=== PATIENT | female | born 1960 | race Two or more races ===

== ENCOUNTER 2024-11-06 16:52 | Emergency (ER) | payer SELFPAY ==
--- NOTE | ~2024-11-06 | XR_ITS ---
HISTORY: injury COMPARISON: None TECHNIQUE: 3 views of the left ankle were performed FINDINGS: Cortical irregularity is identified within the distal fibula, representing either a nutrient foramen versus acute incomplete fracture for which clinical correlation regarding point tenderness is needed. Moderate lateral soft tissue swelling. The ankle mortise is preserved. Bone mineralization is age-appropriate. Ossification of the Achilles tendon is also noted. IMPRESSION: Cortical irregularity is identified within the distal fibula, representing either a nutr ient foramen versus acute incomplete fracture for which clinical correlation regarding point tenderne ss is needed. Reviewed, dictated and finalized at location A. IMPRESSION: Cortical irregularity is identified within the distal fibula, repr esenting either a nutrient foramen versus acute incomplete fracture for which c linical correlation regarding point tenderness is needed.
[2024-11-06 16:52] VITALS: BP 160/80; PULSE 83; RESP 14; TEMP 36.2; O2SAT 99
--- NOTE | 2024-11-06 17:05 | ED.LOWEXIN ---
HPI - Extremity Injury (Lower) General Chief Complaint: Extremity Injury, Lower Stated Complaint: left ankle injury Time Seen by Provider: 11/06/24 17:05 Source: patient Mode of arrival: ambulatory Limitations: no limitations History of Present Illness HPI Narrative: Patient is a 64-year-old female with a left ankle injury after stepping in a hole in the yd. This happened today. She is having pain to the lateral left ankle. No other injuries to include head and neck. MD complaint: ankle injury ( Left) Onset (ago): hour(s) ( 2) Type of Injury: inversion Place: street/outdoors Severity: mild Severity scale (1-10): 3 Relieving factors: cold therapy and immobilization Exacerbating factors: weight bearing, movement and palpation Context: fall ( stepped in a hole) Associated symptoms: swelling and able to partially bear weight Other symptoms: none Treatments prior to arrival: cold therapy Related Data Home Medications ?Medication ?Instructions ?Recorded ?Confirmed ?Last Taken ?Type atorvastatin 40 mg tablet (Lipitor) 40 mg PO HS 11/06/24 Unknown History levothyroxine 25 mcg capsule 25 mcg PO DAILY 11/06/24 Unknown History metformin 500 mg tablet 500 mg PO BID 11/06/24 Unknown History metoprolol succinate 50 mg 50 mg PO DAILY 11/06/24 Unknown History tablet,extended release 24 hr Allergies Allergy/AdvReac Type Severity Reaction Status Date / Time No Known Allergies Allergy Verified 11/06/24 17:16 Review of Systems Review of Systems: All systems reviewed & are unremarkable except as noted in HPI and below Constitutional: Constitutional: Reports no additional constitutional complaints Eyes: Eyes: Reports no additional eye complaints ENT: Reports system reviewed and no additional complaints, except as documented Cardiovascular: Cardiovascular: Reports no additional cardiovascular complaints Respiratory: Respiratory: Reports no additional respiratory complaints Gastrointestinal: Gastrointestinal: Reports no additional gastrointestinal complaints Genitourinary: Genitourinary: Reports no additional female genitourinary complaints Musculoskeletal: Musculoskeletal: Reports no additional musculoskeletal complaints Integumentary/Breasts: Skin/Breast: Reports system reviewed and no additional complaints, except as docu Neurologic: Reports system reviewed and no additional complaints, except as documented Psychiatric: Psychiatric: Reports no additional psychiatric complaints Endocrine: Endocrine: Reports no additional endocrine complaints Hematologic/Lymphatic: Hematologic/Lymphatic: Reports no additional hematologic/lymphatic complaints Allergic/Immunologic: Allergic/Immunologic: Reports no additional allergic/immunologic complaints Exam Const: General: healthy appearing Nutritional Appearance: well nourished Orientation/consciousness: patient oriented x3 HENMT: Head: normal to inspection Ears: external ears normal Face/Nose/Sinus: Normal external nose present Eyes: Conjunctivae: conjunctivae normal Pupils: Equal, round and reactive pupils present EOM: EOMs intact bilaterally Neck: Neck: normal visual inspection Chest: Chest palpation & inspection: normal inspection of the chest Resp: Effort & Inspection: normal respiratory effort and not labored Auscultation: clear to auscultation bilaterally and no crackles Cardio: Rate: regular rate Rhythm: regular rhythm Heart sounds: no murmurs GI: Inspection: non-distended GI Palp: Yes Soft to palpation and No Tenderness to palpation present (GI) Auscultation: normal bowel sounds : General: Yes bladder normal to palpation Back/Spine/Pelvis: Back: no CVA tenderness Skin: General skin exam: normal color Rashes: no rashes Wounds: no wounds Neuro: General: patient oriented x3, moves all extremities and no meningeal signs Extrem: General: abnormal to inspection Other: left ankle lateral aspect of the malleolus is swollen and tender to the palpation without significant ecchymosis Psych: Mental Status: mental status grossly normal Affect: normal affect Attitude: cooperative Course Vital Signs Vital signs: Vital Signs Temperature 36.2 C L 11/06/24 16:52 Pulse Rate 83 11/06/24 16:52 Respiratory Rate 14 11/06/24 16:52 Blood Pressure 160/80 H 11/06/24 16:52 Pulse Oximetry 99 11/06/24 16:52 Oxygen Delivery Room Air 11/06/24 16:52 Temperature 36.2 C L 11/06/24 16:52 Pulse Rate 83 11/06/24 16:52 Respiratory Rate 14 11/06/24 16:52 Blood Pressure 160/80 H 11/06/24 16:52 Pulse Oximetry 99 11/06/24 16:52 Oxygen Delivery Room Air 11/06/24 16:52 MDM - Extremity Injury (Lower) MDM Narrative Medical decision making narrative: patient is a 64-year-old female with a left ankle injury or prior to arrival. We will get an x-ray. Pain control. Imaging Data Attestation: I personally reviewed and interpreted this imaging study as follows: Radiologist's impression: left ankle x-ray shows IMPRESSION: Cortical irregularity is identified within the distal fibula, representing either a nutrient foramen versus acute incomplete fracture for which clinical correlation regarding point tenderness is needed. Discharge Plan Discharge Clinical Impression: Fracture of left fibula Qualifiers: Encounter type: initial encounter Fibula location: distal Fracture type: closed Fracture morphology: unspecified fracture morphology Qualified Code(s): S82.832A - Other fracture of upper and lower end of left fibula, initial encounter for closed fracture Patient Disposition: Home Condition: Stable Instructions: Ankle Fracture (DC) Additional Instructions: please follow-up with an orthopedic surgeon in the next week to discuss plans for left ankle fracture. Please use ibuprofen and Tylenol as needed for pain. Patient Language: Grenadian Prescriptions: No Action metformin 500 mg tablet 500 mg PO BID metoprolol succinate 50 mg tablet extended release 24 hr 50 mg PO DAILY atorvastatin [Lipitor] 40 mg tablet 40 mg PO HS levothyroxine 25 mcg capsule 25 mcg PO DAILY Follow-up/Referrals: UNKNOWN,DOCTOR [Non-Staff] - Time of Disposition: 17:58
[2024-11-06] MEDS: IBUPROFEN 600 MG TABLET PO (17:28)
== END 2024-11-06 18:44 | disposition home or self-care (01) ==
PROVIDERS: Emergency Provider Emergency Medicine; PCP Internal Medicine
DX: S82.832A Other fracture of upper and lower end of left fibula, initial encounter for closed fracture (principal); Z79.899 Other long term (current) drug therapy; Z79.84 Long term (current) use of oral hypoglycemic drugs; X50.0XXA Overexertion from strenuous movement or load, initial encounter
CPT/HCPCS: 29515; 73610; 99284; A9270

== ENCOUNTER 2025-03-23 14:55 | Emergency (ER) | payer MEDICARE, MEDICAID, SELFPAY ==
--- NOTE | ~2025-03-23 | XR_ITS ---
EXAMINATION: AP pelvis: DATE: 03/23/2025 INDICATION: Trauma TECHNIQUE: AP view of the pelvis were obtained. COMPARISON: None. FINDINGS: Osteopenic bones. No acute fracture of the pelvis in this limited single view. Soft tissues are unremarkable. IMPRESSION: 1. Limited single view of pelvis shows no acute fracture. If symptoms are persistent further imaging can be considered. Reviewed, dictated and finalized at location T. [facility] [employer] IMPRESSION: 1. Limited single view of pelvis shows no acute fracture. If symptoms are persi stent further imaging can be considered.
--- NOTE | ~2025-03-23 | XR_ITS ---
EXAMINATION: XR shoulder LT min 2V DATE: 03/23/2025 16:00 INDICATION: Trauma due to fall TECHNIQUE: 3 views of left shoulder were obtained. COMPARISON: None. FINDINGS: Osteopenic bones. No acute fracture or dislocation at the left shoulder. Soft tissues are unremarkable. IMPRESSION: 1. No acute fracture or dislocation at the left shoulder. Reviewed, dictated and finalized at location T. L POST INSTALLER
--- NOTE | ~2025-03-23 | XR_ITS ---
EXAMINATION: XR ankle LT min 3V DATE: 03/23/2025 16:00 INDICATION: Trauma due to fall TECHNIQUE: Views of left ankle were obtained. COMPARISON: None. FINDINGS: Osteopenic bones. Hairline nondisplaced fracture of the tip of the lateral malleolus is suspected. Mild soft tissue swelling. There is no widening of ankle mortise. IMPRESSION: 1. Suspect, hairline transversely oriented nondisplaced fracture of the tip of lateral malleolus. Please correlate with clinical findings. 2. Radiograph is recommended after a few days to assess this area again. Reviewed, dictated and finalized at location T. FIXER
[2025-03-23 14:55] VITALS: BP 154/75; PULSE 71; RESP 16; TEMP 36.7; O2SAT 98
--- OUTSIDE RECORDS SUMMARY | 2025-03-23 15:05 | XMS_ITS | Clinical Summary ---
Author Organization [facility] Address [address] [place] [address] Care Team Providers Care School Bus Driver Name Role Phone Moncho Ng MD Unavailable [phone] Iona Rosario APRN, IT INFRASTRUCTURE CONSULTANT Unavailable Marcos Bartlett MD Primary Care Provider [phone] Allergies No known active allergies Medications albuterol 108 (90 Base) MCG/ACT Aerosol Solution take 2 Puffs by inhalation every 4 hours as needed for Wheezing. 5 Active levothyroxine (SYNTHROID) 25 MCG Tablet Take 25 mcg by mouth daily. 5 Active losartan (COZAAR) 100 MG Tablet Take 100 mg by mouth daily. 5 Active metoprolol Succinate (TOPROL-XL) 25 MG TABLET SR 24 HR Take 25 mg by mouth daily. 5 Active rosuvastatin (CRESTOR) 40 MG Tablet Take 40 mg by mouth daily. 5 Active traMADol (ULTRAM) 50 MG Tablet Take 50 mg by mouth as needed for Severe pain. 5 Active Vitamin D3 1.25 MG (63265 UT) Capsule TAKE 1 CAPSULE BY MOUTH ONCE A WEEK FOR 8 WEEKS. TAKE WITH OTC CALCIUM. 5 Active metFORMIN (GLUCOPHAGE-XR) 500 MG TABLET SR 24 HR Take 1 Tablet by mouth 2 times daily. 5 Active Ascorbic Acid (VITAMIN C PO) Take by mouth. Active Ferrous Sulfate (Iron) 28 MG Tablet Take by mouth. Activ e Active Problems No known active problems Encounters Date Type Department Care Team Description 01/09/2025 9:30 AM CDT Office Visit [facility] - Cardiology [facility] [address] [place] [phone] Iona Rosario APRN, EMILY Primary hypertension (Primary Dx); Abnormal EKG Discharge Disposition: Discharged to home or Selfcare 01/09/2025 Travel from Last 3 Months Family History Medical History Relation Name Comments No Known Problems Father No Known Problems Mother Relation Name Status Comments Father Mother Social History Tobacco Use Types Packs/Day Years Used Date Smoking Tobacco: Never Smokeless Tobacco: Never Tobacco Cessation:Counseling Given: Not Answered Alcohol Use Standard Drinks/Week Comments Not Currently 0 (1 standard drink = 0.6 oz pur e alcohol) Comments Unknown Sex and Gender Information Value Date Recorded Sex Assigned at Not on file Legal Sex Female 9:59 AM CDT Gender Identity Not on file Sexual Orientation Not on file Last Filed Vital Signs Vital Sign Reading Time Taken Comments Blood Pressure 144/80 01/09/2025 9:42 AM CDT Pulse 70 01/09/2025 8:49 AM CDT Temperature 36 C (96.8 F) 01/09/2025 8:49 AM CDT Respiratory Rate 16 01/09/2025 8:49 AM CDT Oxygen Saturation 97% 01/09/2025 8:49 AM CDT Inhaled Oxygen Concentration - - Weight 54.9 kg (121 lb) 01/09/2025 8:49 AM CDT Height 160 cm (5' 3) 01/09/2025 8:49 AM CDT Body Mass Index 21.43 01/09/2025 8:49 AM CDT Plan of Treatment Upcoming Encounters Date Type Department Care Team (Late st Contact Info) Description 04/10/2025 1:00 PM WEALTH MANAGEMENT ADVISOR Appointment [facility] Cardiology [facility] [address] [place] [phone] Iona Rosario APRN, EMILY [address] [place] [address] Discharge Disposition: Discharged to home or Selfcare 04/22/2025 9:00 AM WEALTH MANAGEMENT ADVISOR Office Visit [facility] - Cardiology - [place] [address] [place] [address] Fatoumata Lennon, DO [address] [address] Health Maintenance Due Date Last Done Comments DEXA Bone Density 1960 Hepatitis C Virus (HCV) Screening 1960 Mammogram 1958 TdaP Immunization 1958 Pneumococcal Immunization (5 0+ years) (1 of 2 - PCV) 1977 Cologuard 2003 Colonoscopy 2003 Colorectal Cancer Screening 2003 Immunochemical Fecal Occult Blood 2003 Zoster Immunization (1 of 2) 2008 Medicare Initial AWV [id number] 09/25/2024 Influenza Immunization (#1) 2024 SARS-COV-2 Immunization ( - season) 2024 Respiratory Syncytial Virus (RSV) Immunization (Adult) (1 - 1-dose 75+ series) 2033 Hepatitis B Immunization Aged Out No longer eligible based on patient's age to complete this topic Human Papillomavirus (HPV) Immunization (No Doses Required) Completed Meningococcal Immunization (ACWY) Aged Out No longer eligible based on patient's age to complete this topic Rotavirus Immunization Aged Out No lo nger eligible based on patient's age to complete this topic Insurance [place]ICA[place] MEDICARE MEDICA[place] Care Teams School Bus Driver Relationship Specialty Start Date End Date Marcos Bartlett MD [address] [place] [address] PCP - General Family Medicine 01/09/25 Moncho Ng MD [address] [place] [phone] Consulting Physician Oncology 09/06/24 Iona Rosario APRN, IT INFRASTRUCTURE CONSULTANT [address] [place] [address] Nurse Practitioner Cardiology 10/02/24
--- NOTE | 2025-03-23 15:34 | ED.FALL ---
HPI - Fall General Chief Complaint: Fall Stated Complaint: left ankle pain Time Seen by Provider: 03/23/25 15:18 Source: patient and family Mode of arrival: ambulatory Limitations: language barrier (The patient's daughter translates. The patient and her daughter decline translating services) History of Present Illness HPI Narrative: This is a 64-year-old female, with history of rheumatoid arthritis, presenting to the emergency department complaining of moderate dull left ankle, hip shoulder pain for the past several days. The patient had a ground level fall striking the left side. She denies head injury or loss of consciousness. She has no other complaints at this time. Related Data Home Medications ?Medication ?Instructions ?Recorded ?Confirmed ?Last Taken ?Type atorvastatin 40 mg tablet (Lipitor) 40 mg PO HS 11/06/24 Unknown History levothyroxine 25 mcg capsule 25 mcg PO DAILY 11/06/24 Unknown History metformin 500 mg tablet 500 mg PO BID 11/06/24 Unknown History metoprolol succinate 50 mg 50 mg PO DAILY 11/06/24 Unknown History tablet,extended release 24 hr Allergies Allergy/AdvReac Type Severity Reaction Status Date / Time No Known Allergies Allergy Verified 03/23/25 16:04 Review of Systems Review of Systems: All systems reviewed & are unremarkable except as noted in HPI and below (HPI) PMFSH Past Medical History Medical History History of fracture of left ankle Hypothyroidism Rheumatoid arthritis Surgical History Surgical History No significant past surgical history Social History Social History Smoking status: Never smoker Alcohol intake: never Substance use: never Exam Narrative: GENERAL: Well-developed, well-nourished, and in no acute distress. HEAD: Normocephalic, atraumatic. EYES: PERRLA and EOMI. NECK: Supple. No midline spine tenderness to palpation, step-off or crepitus CHEST: Clear to auscultation. No respiratory distress. No wheezes rales or rhonchi HEART: Regular rate and rhythm. No murmur heard. Normal peripheral pulses. EXTREMITIES: Mild swelling with tenderness noted at the left lateral malleolus. No other noted deformity, capillary refill less than 2 seconds and sensation intact. Mild tenderness to palpation over the left hip without step-off or crepitus. Mild tenderness to palpation at the posterior aspect of the left shoulder without deformity, step-off or crepitus. Capillary refill less than 2 seconds in the hand; sensation intact bilaterally. Range of motion of the left shoulder limited on elevation due to pain Normal range of motion of all other extremities. No edema. SKIN: Warm, dry, no rash. NEURO: Alert and oriented x3. No focal deficit. Moving all 4 limbs spontaneously PSYCH: Normal mood and affect. Course Course Emergency Course: 16:53 - X-ray of the left ankle shows changes at the lateral malleolus concerning for hairline fracture. X-ray of the shoulder and pelvis not concerning for acute abnormality. Will place a splint and discharged with recommendation for orthopedic surgery follow-up. I discussed the findings and recommendations with the patient and her daughter. Discussed return and emergency precautions including signs/symptoms of septic arthritis and neurovascular compromise. The patient and her daughter voiced understanding and agreement with the plan. All questions answered to their satisfaction. Vital Signs Vital signs: Vital Signs Temperature 98.0 F 03/23/25 14:55 Pulse Rate 71 03/23/25 14:55 Respiratory Rate 16 03/23/25 14:55 Blood Pressure 154/75 H 03/23/25 14:55 Pulse Oximetry 98 03/23/25 14:55 Oxygen Delivery Room Air 03/23/25 14:55 Temperature 98.0 F 03/23/25 14:55 Pulse Rate 76 03/23/25 17:05 Respiratory Rate 20 03/23/25 17:05 Blood Pressure 154/75 H 03/23/25 14:55 Pulse Oximetry 100 03/23/25 17:05 Oxygen Delivery Room Air 03/23/25 17:05 [facility] Narrative Medical decision making narrative: Plan: Imaging, pain control, reassess Differential Diagnosis Differential Diagnosis: Ankle fracture, ankle contusion, ankle sprain, pelvis fracture, contusion of pelvis, shoulder fracture, contusion of shoulder, arthritis, other Imaging Data Radiologist's impression: ITS Impressions Ankle X-Ray 03/23/25 16:01 IMPRESSION: 1. Suspect, hairline transversely oriented nondisplaced fracture of the tip of lateral malleolus. Please correlate with clinical findings. 2. Radiograph is recommended after a few days to assess this area again. Pelvis X-Ray 03/23/25 16:03 IMPRESSION: 1. Limited single view of pelvis shows no acute fracture. If symptoms are persistent further imaging can be considered. Shoulder X-Ray 03/23/25 16:04 IMPRESSION: 1. No acute fracture or dislocation at the left shoulder. Discharge Plan Discharge Clinical Impression: Acute left ankle pain, Acute pain of left shoulder, Acute pain of left hip Ankle fracture, left Qualifiers: Encounter type: initial encounter Fracture type: closed Qualified Code(s): S82.892A - Other fracture of left lower leg, initial encounter for closed fracture Patient Disposition: Home Condition: Stable Instructions: Antibiotic Form, Ankle Fracture (ED) Additional Instructions: You were seen in the emergency department. An x-ray of the left ankle showed a hairline fracture. Replaced in a splint. I recommend following up with your orthopedic surgery in 1-2 weeks for repeat imaging. If you develop severe ankle pain with fevers, the foot/toes appear blue/cold, or if you have other emergent concerns for life, limb, or eyesight, return to the emergency department. Patient Language: Nepalese Prescriptions: New hydrocodone-acetaminophen 5-325 mg tablet 1 tablet PO BID PRN (Reason: severe pain (scale score 7-10)) Qty: 12 0RF crutches 2 units miscellaneous DAILY 30 Days 0RF No Action metformin 500 mg tablet 500 mg PO BID metoprolol succinate 50 mg tablet extended release 24 hr 50 mg PO DAILY atorvastatin [Lipitor] 40 mg tablet 40 mg PO HS levothyroxine 25 mcg capsule 25 mcg PO DAILY Follow-up/Referrals: Elliot,MD Scottie [Primary Care Provider, Unknown] - 2 Weeks Time of Disposition: 16:53
[2025-03-23 17:05] VITALS: PULSE 76; RESP 20; O2SAT 100
== END 2025-03-23 17:05 | disposition home or self-care (01) ==
PROVIDERS: Emergency Provider Preventive Medicine Aerospace Medicine; PCP Family Medicine
DX: S82.892A Other fracture of left lower leg, initial encounter for closed fracture (principal); M25.512 Pain in left shoulder; M25.552 Pain in left hip; M06.9 Rheumatoid arthritis, unspecified; E03.9 Hypothyroidism, unspecified; W18.30XA Fall on same level, unspecified, initial encounter
CPT/HCPCS: 29515; 72170; 73030; 73610; 99284; L4350